=== PATIENT | female | born 1975 | race Caucasian/White ===

== ENCOUNTER 2021-03-17 16:05 | Emergency (ER) | payer BC, SELFPAY ==
--- NOTE | 2021-03-17 16:15 | ED.GENADULT ---
HPI - General Adult General Chief complaint: Urogenital-Female Stated complaint: uti complaint Time Seen by Provider: 03/17/21 16:15 Source: patient Mode of arrival: ambulatory Limitations: no limitations History of Present Illness HPI narrative: 45-year-old female patient presents to the [facility] with complaints of urinary pain that started this morning. Patient states is very painful to urinate plus she has noticed that her urine is a lot darker than normal. Patient states she has had urinary frequency but not been able to pee out very much at one time. Denies fevers, body aches or chills. Denies any low back pain. Related Data Allergies Allergy/AdvReac Type Severity Reaction Status Date / Time benazepril Allergy Unknown cough Verified 04/24/17 21:20 fluoxetine Allergy Unknown irritability, Verified 04/24/17 21:20 hostility vilazodone [Viibryd] Allergy Unknown numbness-fa Verified 04/24/17 21:20 ce,extremit ies No Known Allergies Allergy Unverified 04/07/16 09:13 Review of Systems Review of Systems: CONSTITUTIONAL: Denies fever, chills, or sweats. EYES: Denies visual changes, redness, or discharge. ENT: Denies rhinorrhea, congestion, sore throat, or otalgia. CARDIOVASCULAR: Denies chest pain, palpitations, or edema. RESPIRATORY: Denies cough or dyspnea. GASTROINTESTINAL: Denies abdominal pain, nausea, vomiting, or diarrhea. GENITOURINARY: Positive dysuria or hematuria. SKIN: Denies rash or itching. MUSCULOSKELETAL: Denies back pain, joint pain, or myalgia. NEUROLOGIC: Denies headache, numbness, or weakness. PSYCHIATRIC: Denies anxiety or depression. [facility] Past Medical History Medical History Dysthymic disorder Other obesity Symptomatic cholelithiasis Family History Family History Mother Family history of obesity Family history of diabetes mellitus in first degree relative Family history of allergic disorder Patient's mother is Diabetes mellitus Hypertension, Onset Age: 47 Family history of cardiovascular disease, Onset Age: 47 Carcinoma of colon Family history of malignant neoplasm of breast in first degree relative Father Family history of heart disease in male family member before age 55 Family history of obesity Patient's father is in good health Family history of hearing loss Family history of cardiovascular disease Acute myocardial infarction Grandparent Family history of obesity Cerebrovascular accident Family history of hearing loss Diabetes mellitus Sibling Patient's brother is in good health Family history of allergic disorder Hypertension Social History Social History Smoking status: Never smoker Alcohol intake: never Comments At the time of my signature I agree with nursing past medical history, surgical, social, and family history. There is no relevant family history pertinent to the presenting complaint. Exam Narrative: GENERAL: Well-appearing, well-nourished, and in no acute distress. HEAD: Normocephalic, atraumatic. EYES: PERRLA and EOMI. ENT: Nares clear, no rhinorrhea or epistaxis. Mucous membranes moist. NECK: Supple. No lymphadenopathy CHEST: Clear to auscultation. No respiratory distress. HEART: Regular rate and rhythm. No murmur heard. Normal peripheral pulses. ABDOMEN: Soft, nontender, nondistended, normal active bowel sounds. No CVA tenderness on percussion EXTREMITIES: Normal range of motion. No edema. SKIN: Warm, dry, no rash. NEURO: No focal deficits. Alert and oriented x3. Course Vital Signs Vital signs: Vital Signs Temperature 36.7 C 03/17/21 16:19 Pulse Rate 81 03/17/21 16:19 Respiratory Rate 18 03/17/21 16:19 Blood Pressure 141/82 H 03/17/21 16:19 Pulse Oximetry 99 03/17/21 16:19 Temperature 36.7 C 03/17/21 16:19 Pulse Rate
[2021-03-17 16:19] VITALS: BP 141/82; PULSE 81; RESP 18; TEMP 36.7; O2SAT 99
[2021-03-17 16:34] VITALS: BP 141/82; PULSE 81; RESP 18; TEMP 36.7; O2SAT 99
== END 2021-03-17 16:35 | disposition home or self-care (01) ==
PROVIDERS: Emergency Provider Nurse Practitioner Family; PCP Family Medicine
DX: N30.01 Acute cystitis with hematuria (principal); I10 Essential (primary) hypertension
CPT/HCPCS: 81003; 87077; 87086; 87088; 87186; 99213; G0463